=== PATIENT | male | born 1990 | race Caucasian/White ===

== ENCOUNTER 2021-12-25 07:37 | Emergency (ER) | payer SELFPAY ==
[~2021-12-25] VITALS: Ht 165.1 cm; Wt 69.9 kg
[2021-12-25 07:41] VITALS: BP 133/98
--- NOTE | 2021-12-25 07:57 | NUR ---
PT C/O TOOTHACHE X3 DAYS UNABLE TO SEE DENTIST AT THIS TIME
[2021-12-25] MEDS ORDERED: PENI500T20 PO (08:00)
[2021-12-25] MEDS ORDERED: NAPR-54 PO (08:00)
== END 2021-12-25 08:07 | disposition home or self-care (01) ==
LOC: MED 07:37
DX: K08.89 Other specified disorders of teeth and supporting structures (principal); F17.290 Nicotine dependence, other tobacco product, uncomplicated; Z79.899 Other long term (current) drug therapy; Z71.6 Tobacco abuse counseling
CPT/HCPCS: 99283

== ENCOUNTER 2022-07-12 13:08 | Emergency (ER) | payer SELFPAY ==
[~2022-07-12] VITALS: Ht 157.5 cm; Wt 68.5 kg
[~2022-07-12 13:08] MED LIST: NAPR-54 PO; PENI500T20 PO
[2022-07-12 13:35] VITALS: BP 137/77
--- NOTE | 2022-07-12 13:35 | NUR ---
pt to alyssa fernández
--- NOTE | 2022-07-12 15:20 | NUR ---
32M presents to [facility] with c/o right arm pain/weakness since yesterday. Pt reports poking like 6/10 pain when moving arm laterally. Pt denies pain without movement, denies taking medication for pain. Upon assessment pt has full ROM of right arm, no obvious deformities, swelling or bruising noted.
[2022-07-12 15:30] VITALS: BP 138/85
[2022-07-12] MEDS ORDERED: NAPR-1704 PO (15:41)
--- NOTE | 2022-07-12 15:47 | NUR ---
Patient discharged with v/s stable. Written and verbal after care instructions ABOUT SHOUDLER PAIN given and explained. Patient alert, oriented and verbalized understanding of instructions. Ambulatory with steady gait. All questions addressed prior to discharge. ID band removed. Patient advised to follow up with PMD. Rx of NAPROXEN given. Patient educated on indication of medication including possible reaction and side effects. Opportunity to ask questions provided and answered.
== END 2022-07-12 15:46 | disposition home or self-care (01) ==
LOC: MED 13:08
DX: M25.511 Pain in right shoulder (principal); Z79.899 Other long term (current) drug therapy; Z98.890 Other specified postprocedural states
CPT/HCPCS: 73030; 99283; Q0092

== ENCOUNTER 2023-04-21 13:16 | Emergency (ER) | payer MEDICAID ==
[~2023-04-21] VITALS: Ht 165.1 cm; Wt 75.3 kg
[~2023-04-21 13:16] MED LIST changes: +NAPR-1704 PO
[2023-04-21 13:38] VITALS: BP 145/104; PULSE 57; RESP 20; TEMP 97.2; O2SAT 96
[2023-04-21] MEDS: TETRACAINE HCL/PF 0.5% OPTH 4 ML BTL OP ONE (14:12)
[2023-04-21] MEDS: FLUORESCEIN OPTH STRIP 1 MG OP ONE (14:12)
[2023-04-21] MEDS ORDERED: LORA10SG1 PO (14:49)
[2023-04-21] MEDS ORDERED: POLY30DR2 OP (14:49)
[2023-04-21 14:58] VITALS: BP 145/104; PULSE 57; RESP 20; TEMP 97.2; O2SAT 96
== END 2023-04-21 14:58 | disposition home or self-care (01) ==
LOC: MED 13:16
DX: H10.9 Unspecified conjunctivitis (principal); Z79.899 Other long term (current) drug therapy
CPT/HCPCS: 99283